=== PATIENT | female | born 1940 | race Caucasian/White ===

== ENCOUNTER 2016-11-24 14:18 | Observation (INO) | payer MEDICARE, OTHER ==
[~2016-11-24] VITALS: Ht 165.1 cm; Wt 72.6 kg
--- NOTE | ~2016-11-24 | HP ---
History And Physical [place] [id number] [facility] [place]. [address] NAME: ABBY MO : 39 STATUS : ADM [facility] PAT#: [id number] AGE: 76 ADM/REG DATE : 11/24/16 MR#: [id number] REPORT SERV DATE: 11/24/16 DICTATED BY: DEANN FLANAGAN DATE: 11/24/16 REPORT STATUS : Draft TRANSCRIBED BY: MODL DATE: 11/24/16 DATE OF ADMISSION: 11/24/2016 CHIEF COMPLAINT: Near syncopal episode. HISTORY OF PRESENT ILLNESS: The patient is a 76-year-old female. She has a past medical history significant for, 1. Recent hospitalization for cholecystitis and pancreatitis with positive blood culture. 2. Chronic prednisone therapy for rheumatoid arthritis. 3. Hypertension. 4. GERD. 5. Hypothyroidism. 6. Hyperlipidemia. She presents for a "spell" which happened today. She states around 2 o'clock, she was getting her nails done. She felt like her vision was graying out, she became sweaty, she felt faint. She was not describing paresthesias, weakness in any extremity, chest pain, or palpitations. She states for approximately a minute, she felt very foggy, was not sure if she had completely passed out or not. She states over the next several minutes, things seemed to normalize. She had called her to come and get her and present to the emergency department with symptoms resolved at that point. She states she has never had a similar episode. She questions whether it might be related to her recent surgery. She states that since discharge, she has been following a very strict diet and believes her fluid intake may have been slightly lower than normal, although she was not having any orthostatic symptoms that she was aware of prior to the episode today. Never had anything prior, feels like her symptoms are completely resolved at this point. PAST MEDICAL HISTORY: As covered above. PAST SURGICAL HISTORY: She had a recent cholecystectomy. She had a knee surgery in the past. She had an eye surgery in the past, which left her with resultant left eye droop. She has had knee surgeries in the past. CURRENT MEDICATIONS: Aspirin 81, Lipitor 10, BuSpar 15 t.i.d., Coreg 25 b.i.d., vitamin D 5000, coenzyme Q10 at 100 b.i.d., vitamin B12 at 4000, Nexium 40, Lasix 20, Avapro 300, Levaquin 750, Synthroid 0.137, Flagyl 500 t.i.d., potassium 10 b.i.d., prednisone 7.5 daily. ALLERGIES: NONE. FAMILY HISTORY: Father had a CABG, passed at age 59. Mother had hypothyroidism, passed at 95. SOCIAL HISTORY: Nondrinker and nonsmoker. REVIEW OF SYSTEMS: No headache, dizziness, sore throat, cough, shortness of breath, chest pain, palpitations, History And Physical [address] [address] NAME: ABBY MO : 39 STATUS : ADM [facility] PAT#: [id number] AGE: 76 ADM/REG DATE : 11/24/16 MR#: [id number] REPORT SERV DATE: 11/24/16 DICTATED BY: DEANN FLANAGAN DATE: 11/24/16 REPORT STATUS : Draft TRANSCRIBED BY: NICK DATE: 11/24/16 nausea, vomiting, diarrhea, documented temperature, myalgias, paresthesias, or weakness. Other than above, 10-point review of systems is negative. PHYSICAL EXAMINATION: VITAL SIGNS: Currently, BP 120/72, pulse 74, sat 100%. Her presenting vital signs were temp 98.3, respirations 16. GENERAL: She is awake, alert, and oriented, in no acute distress. HEENT: Normocephalic, atraumatic. Sclerae are nonicteric. NECK: Supple. HEART: Regular rate and rhythm, without murmurs, gallops, or rubs. LUNGS: Clear to auscultation, without rhonchi, rales, or wheezes. ABDOMEN: Nontender and nondistended. EXTREMITIES: No clubbing, cyanosis, or edema. NEUROLOGIC: Pupils are equal, round, and reactive to light and accommodation. Extraocular muscles are intact. No gross cranial nerve deficit noted. Laboratory Chemical Assistant strengths are symmetric bilaterally. Fine motor skill is normal. Lower extremities show normal strength and sensation. Gait was not tested. LABORATORY DATA: Sodium 126, potassium 3.2, chloride 91, CO2 of 25, BUN and creatinine are 7 and 1.26. Her last creatinine available was 0.85 on the 9th, last potassium was 3.5 on the 9th, and last sodium was 132 on the 9th. AST and ALT were 25 and 45, alkaline phosphatase 124, lipase 210. Troponin less than 0.02. Lactate 1.4. White count 8.1, hemoglobin and hematocrit are 11.4 and 33.8, and platelets are 248. IMAGING: CT of the brain done on 11/24/2016 showed no acute intracranial abnormality, atrophy, chronic microvascular white matter ischemic changes. Chest x-ray showed minimal bibasilar atelectasis, otherwise, no acute cardiopulmonary abnormality appreciated. Interval clearing of previously seen venous congestion, stable borderline enlargement of the cardiac silhouette, and stable atherosclerotic changes of thoracic aorta. ASSESSMENT: Near syncopal episode in a 76-year-old female with above medical problems. Symptoms have currently resolved. PLAN: The patient has been admitted to observation. We will replace her sodium, potassium, and IV fluids to correct her creatinine. We will do orthostatics. We will check an MRI, MRA, and echo as she does seem to warrant a TIA rule out given the symptoms, but again maybe somewhat related to volume and electrolytes. We will continue her home medications as appropriate. ASHELYF/AVRILL Deann Flanagan M.D. / [id number] History And Physical [address] [address] NAME: ABBY MO : 39 STATUS : ADM [facility] PAT#: [id number] AGE: 76 ADM/REG DATE : 11/24/16 MR#: [id number] REPORT SERV DATE: 11/24/16 DICTATED BY: DEANN FLANAGAN DATE: 11/24/16 REPORT STATUS : Draft TRANSCRIBED BY: MODL DATE: 11/24/16 CC: Rick Cazarse M.D.
--- NOTE | ~2016-11-24 | DS ---
Discharge Summary [facility] [address] [place]. [address] NAME: ABBY MO : 39 STATUS : DIS [facility] PAT#: [id number] AGE: 76 ADM/REG DATE : 11/24/16 MR#: [id number] REPORT SERV DATE: 11/29/16 DICTATED BY: RICK CAZARES DATE: 11/25/16 REPORT STATUS : Draft TRANSCRIBED BY: MODL DATE: 11/25/16 ADMISSION DATE: 11/24/2016 DISCHARGE DATE: 11/25/2016 DISCHARGE DIAGNOSES: 1. Hyponatremia, now resolved. 2. Hypokalemia now resolved. 3. Acute kidney injury, now resolved. 4. Presyncope, currently stable and no further symptoms. 5. Hypothyroidism. 6. Hypertension. 7. Rheumatoid arthritis. CONSULTANTS DURING THIS HOSPITALIZATION: None. INVASIVE PROCEDURES DONE DURING THIS HOSPITALIZATION: None. BRIEF HISTORY OF PRESENT ILLNESS: The patient is 76-year-old white female, with recent cholecystectomy who was doing okay at home and has not been eating and drinking as well because of the pancreatitis as well as the recent surgery. She came in with what she called dizziness, but no focal weaknesses, so she was admitted. For detailed history and physical exam, please see note dictated by Dr. Chaz Awan on 11/24/2016. HOSPITAL COURSE: After being admitted to the hospital, this patient was kept on the monitor that remained stable. Orthostatics were negative. She was given IV hydration. She was noted to have a hyponatremia and that corrected with IV hydration. Initially, it was thought that she would need a rule out syncope workup, however, when I saw her, this patient's symptoms had completely resolved. After discussing with the patient and the at the bedside, it was decided that we do not need to pursue echo nor do we need to pursue any MRI. At this, the patient feels back to baseline. I had a long discussion with the patient regarding dietary modifications and changes as well as chronic keep Hydrea hydrated with use of electrolyte rich fluids. We have asked her to avoid further use of caffeinated and carbonated products. This patient feels well enough otherwise and is being discharged in stable condition. DISCHARGE DISPOSITION: Home. DISCHARGE ACTIVITY: As tolerated. DISCHARGE DIET: The patient GI soft regular diet. DISCHARGE MEDICATIONS: Aspirin 81 mg once daily Lipitor 10 mg once daily, Coreg 25 mg twice daily, vitamin B12 a 1000 mcg once daily, vitamin D 5000 units once daily, coenzyme Q10 of 100 mg twice daily, levothyroxine 137 mcg once daily, Nexium 40 mg once daily, potassium 10 mEq twice daily. Flap prednisone to 7.5 mg once daily, Avapro 300 mg to be held until seen by her primary care physician, BuSpar 15 mg three times daily p.r.n. for anxiety, and Lasix Discharge Summary [address] [place]. [address] NAME: ABBY MO : 39 STATUS : DIS [facility] PAT#: [id number] AGE: 76 ADM/REG DATE : 11/24/16 MR#: [id number] REPORT SERV DATE: 11/29/16 DICTATED BY: RICK CAZARES DATE: 11/25/16 REPORT STATUS : Draft TRANSCRIBED BY: NICK DATE: 11/25/16 20 mg once daily to be held until seen by primary care physician. DISCHARGE FOLLOWUP: With Dr. Gaming in [place], [place]. About 25 minutes spent planning this patient's discharge, reconciling medications, writing prescriptions, discussing hospital care and follow up with the patient and documenting this discharge. LILY/NICK Rick Cazares M.D. / [id number] CC: Rick Cazares M.D.
[~2016-11-24 14:18] MED LIST: ALLEGRA180 PO; ATEN25 PO; AVAPRO300 MG PO; BUSPAR10 PO; BUSPAR15 M1 PO; CO Q-10100 MG PO; COREG25 PO; CYANO1000T PO; D 5000 PO; FLAG500TAB PO; HALF81 PO; HYZAAR 100/25 T1 TAB PO; L20 PO; LEVAQUIN750 MG PO; LIPITOR10 PO; MICRO-K10 MEQ PO; NEXIUM40 PO; P5 PO; PRAVACHOL40 MG PO; PREDNISONE2.5 MG PO; REG PO; SYN.15 PO; SYNTHROID137 MCG PO
[2016-11-24 15:27] LABS: BASOPHILS 0.2 %; BASOPHILS ABSOLUTE 0.02 10/3/uL (0.0-0.16); EOSINOPHILS 0.7 %; EOSINOPHILS ABSOLUTE 0.06 10/3/uL (0.0-0.53); HEMOGLOBIN 11.4 g/dL (12.0-16.0); IMMATURE GRANULOCYTES 0.6 %; IMMATURE GRANULOCYTES ABSOLUTE 0.05 10/3/uL (0.0-0.11); LYMPHOCYTES 19.2 %; LYMPHOCYTES ABSOLUTE 1.55 10/3/uL (0.67-4.30); MEAN CORPUS HGB CONC 33.7 g/dL (32.0-36.0); MEAN CORPUSCULAR HEMOGLOB 29.8 pg (26.0-34.0); MEAN CORPUSCULAR VOLUME 88.3 fL (80-100); MEAN PLATELET VOLUME 11.6 fL (9.2-13.0); MONOCYTES 12.4 %; NEUTROPHILS 66.9 %; NEUTROPHILS ABSOLUTE 5.41 10/3/uL (2.02-8.40); RBC DISTRIBUTION WIDTH 15.1 % (12.0-16.0); RED CELL COUNT 3.83 10/6/uL (4.0-5.6); WHITE BLOOD CELLS 8.1 10/3/uL (4.5-10.5)
[2016-11-24 15:28] LABS: HEMATOCRIT 33.8 % (36.0-48.0); MANUAL DIFF NO %; PLATELET COUNT 248 10/3/uL (150-400)
[2016-11-24 15:36] LABS: PROTIME (NOT ORD) 12.9 SEC (12.0-14.5)
[2016-11-24 15:45] LABS: BUN (BLOOD UREA NITROGEN) 7 MG/DL (6-23); CALCIUM, SERUM 8.7 MG/DL (8.5-10.4); CO2 (CARBON DIOXIDE) 25 MMOL/L (24-34); CREATININE 1.26 MG/DL (0.55-1.02); GFR AFRICAN AMERICAN 48 ML/MIN (>=60); GFR NON AFRICAN AMERICAN 41 ML/MIN (>=60); GLUCOSE, SERUM 118 MG/DL (60-99); POTASSIUM, SERUM 3.2 MMOL/L (3.5-5.3); SGOT(AST) 25 U/L (5-40); SGPT(ALT) 45 U/L (5-65); SODIUM, SERUM 126 MMOL/L (135-148); TOTAL PROTEIN 6.6 G/DL (6.0-8.5); TROPONIN I <0.02 NG/ML (<0.05)
[2016-11-24 15:46] LABS: A/G RATIO 1.1 (0.7-1.9); ALBUMIN 3.4 G/DL (3.5-5.0); ALKALINE PHOSPHATASE 124 U/L (45-117); CHLORIDE, SERUM 91 MMOL/L (96-112); GLOBULIN 3.2 G/DL (2.5-4.1); TOTAL BILIRUBIN 0.7 MG/DL (0-1.2)
[2016-11-24 15:52] LABS: LACTATE 1.4 MMOL/L (0.3-2.4)
[2016-11-24 21:29] LABS: FREE T4 1.94 NG/DL (0.76-1.46)
[2016-11-25 05:07] LABS: INTERNATIONAL NORMAL RATI 1.1 UNITS (-)
[2016-11-25 06:18] LABS: BUN (BLOOD UREA NITROGEN) 5 MG/DL (6-23); CALCIUM, SERUM 8.9 MG/DL (8.5-10.4); CO2 (CARBON DIOXIDE) 23 MMOL/L (24-34); CREATININE 0.88 MG/DL (0.55-1.02); GFR AFRICAN AMERICAN 73 ML/MIN (>=60); GFR NON AFRICAN AMERICAN 63 ML/MIN (>=60); HDL CHOLESTEROL 65 MG/DL (> 49); TROPONIN I <0.02 NG/ML (<0.05)
[2016-11-25 06:20] LABS: CHLORIDE, SERUM 104 MMOL/L (96-112); CHOL/HDL RATIO(NOT ORDER) 2.2 (0-5); CHOLESTEROL 144 MG/DL (< 200); FOLATE 40.3 NG/ML (>5.2); GLUCOSE, SERUM 76 MG/DL (60-99); LDL CHOLESTEROL 67 MG/DL (< 130); NON-HDL CHOLESTEROL 79 MG/DL (< 160); POTASSIUM, SERUM 4.6 MMOL/L (3.5-5.3); SODIUM, SERUM 135 MMOL/L (135-148); TRIGLYCERIDE 60 MG/DL (< 150)
[2016-11-25] MEDS ORDERED: 1 (14:35)
== END 2016-11-25 15:28 | disposition home or self-care (01) ==
LOC: ER 14:18 → CDU2 18:00 → CDU1 18:00 → CDU2 18:34
PROVIDERS: Emergency Medicine; Internal Medicine
DX: R55 Syncope and collapse (principal); I10 Essential (primary) hypertension; K21.9 Gastro-esophageal reflux disease without esophagitis; E87.1 Hypo-osmolality and hyponatremia; E87.6 Hypokalemia; N17.9 Acute kidney failure, unspecified; E03.9 Hypothyroidism, unspecified; E78.5 Hyperlipidemia, unspecified; M06.9 Rheumatoid arthritis, unspecified; Z90.49 Acquired absence of other specified parts of digestive tract; Z98.890 Other specified postprocedural states; Z79.82 Long term (current) use of aspirin; Z79.899 Other long term (current) drug therapy
CPT/HCPCS: 70450; 71010; 80048; 80053; 80061; 82607; 82746; 82962; 83036; 83605; 83690; 83735; 84439; 84443; 84484; 85025; 85610; 93005; 96365; 96366; 96372; 96376; 99285; A9270-GY; G0378